=== PATIENT | male | born 1955 | race Caucasian/White ===

== ENCOUNTER 2016-12-15 13:01 | Emergency (ER) | payer MEDICAID, OTHER ==
[~2016-12-15] VITALS: Ht 170.2 cm; Wt 74.4 kg
[2016-12-15 13:22] VITALS: Ht 170.2 cm; Wt 74.4 kg
[2016-12-15] MEDS ORDERED: TETRACAINE 0.5% 4 ML OPH BOTH EYES ONE (16:00)
[2016-12-15] MEDS ORDERED: FLUORESCEIN STRIP RIGHT EYE ONE (16:00)
--- NOTE | 2016-12-15 16:03 | ERD ---
ER Documentation Chief Complaint Date/Time DATE: 12/15/16 TIME: 15:55 Chief Complaint RIGHT EYE BLURRY VISION X 1 MONTH.SENT BY PMD HPI This is a 61-year-old male who presents to the ED with right eye blurry vision for 1 month. Patient admitted the blurry vision came on suddenly and has not returned. Patient can still see colors and contours. Patient also has 8/10 pain that radiates to the right temporal and right-sided headache that has been constant for the past month. Patient has not taken any pain medication and nothing relieves the pain. Patient denies fever, flashing lights or floaters, ringing in the ears, nausea, vomiting, diarrhea. Denies wearing any glasses or contacts. Denies any headaches, weakness, numbness or tingling. Denies any photophobia or phonophobia. ROS All systems reviewed and are negative except as per history of present illness. Allergies Allergies: Coded Allergies: No Known Allergy (Unverified , 12/15/16) Physical Exam Vitals Vital Signs Date Time Temp Pulse Resp B/P Pulse Ox O2 Delivery O2 Flow Rate FiO2 12/15/16 13:22 98.2 118 20 120/61 98 Physical Exam Const: [id number]-[id number], well-nourished. In no acute distress. Head: Atraumatic, normocephalic Eyes: Normal Conjunctiva with mild injection. No purulent discharge. PERRLA to left eye. Limited pupil constriction to right eye. EOMI bilaterally. Cup to disc ratio not visualized on right eye. ENT: Normal external ear. Ear canal without erythema. Tympanic membrane pearly ospina without effusion or bulging. Nasal canal clear with normal turbinates. Moist oropharynx without tonsillar exudates. Non-erythematous pharynx. Uvula midline. No drooling. No trismus. Neck: No cervical midline tenderness. Full range of motion. No meningismus. No cervical lymphadenopathy. No JVD. Resp: Clear to auscultation bilaterally. No wheezing, rhonchi, rales, or crackles. No accessory muscle use. No retractions. Cardio: Regular rate and rhythm. No murmurs, rubs or gallops. Skin: Normal skin turgor. No petechiae or rashes Ext: No cyanosis, or edema. Distal pulses intact bilaterally. Neur: Awake and alert. Normal gait. Normal coordination. Cranial Nerves II- VII intact. Normal finger to nose. Muscle strength 5/5. Sensation intact. Psych: Normal Mood and Affect Results 24 hrs Current Medications Medications (Trade) Dose Ordered Sig/Marylou Route PRN Reason Start Time Stop Time Status Last Admin Dose Admin Tetracaine HCl (Tetracaine 0.5% Steri-Unit Stephanie) 1 drop ONCE ONCE BOTH EYES 12/15/16 16:00 12/15/16 16:01 DC 12/15/16 16:13 Fluorescein Sodium (Qhgvr-D-Ffeiy) 1 strip ONCE ONCE RIGHT EYE 12/15/16 16:00 12/15/16 16:01 DC 12/15/16 16:13 Procedures/MDM This is a 61-year-old male with a past medical history of bipolar disorder presents to the ED complaining of sudden onset of blurred vision that occurred in his right eye 1 month ago. Patient is afebrile and nontoxic-appearing. At this time patient was further evaluated with a visual acuity, fluorescein stain , Pedro Luis-Pen and ultrasound of the bilateral eyes. Eye Exam w/ Wood's lamp: Visual Acuity: [Left 20/40 right 20/50 bilateral 20/40 Visual Davidson: Intact in all four quadrants bilaterally Lac ducts/glands: No swelling Lids w/ evertion: Normal, no foreign body Conj/Jackson: Clear, negative Fluorescein/Vidal's Anterior Chamber: Clear Tonopen readings: [Right 48 mmHg, left 20 mmHg] Retina exam: No obvious abnormality PROCEDURE: US orbits. CLINICAL INDICATION: Right eye blurry vision and pain for 1 month. TECHNIQUE: High-resolution sonography of the orbits was performed in the axial and sagittal planes. COMPARISON: None. FINDINGS: There are bilateral linear echogenic structures posteriorly in the globes consistent with retinal detachment. In addition, the lens of the right eye may be abnormally positioned. IMPRESSION: 1. Bilateral retinal detachment. 2. Lens of the right eye may be abnormally positioned. 3. Ophthalmology consultation is advised Call report: A call report of the findings was made to Dr. Patel on 2016 at 1730 hours. Patient was noted to have a bilateral retinal detachment. This case was discussed with my supervising physician, Dr. Ramírez who stated that patient can be managed on outpatient basis. I strictly instructed patient to follow-up within 24 hours with an [facility] consultant at [facility]. Low suspicion for ruptured globe, periorbital cellulitis, acute angle closure glaucoma, deep space infection, iritis, traumatic hyphema, conjunctivitis, subconjunctival hemorrhage, corneal abrasion, corneal ulcer, pterygium, hypopyon, blepharitis, hordeolum, chalazion, or other emergent conditions. Follow up with primary care physician in 1-2 days. Instructed patient to return to the ED sooner for any worsening symptoms. Patient's questions were answered. Patient understood and agreed with discharge plan. Patient discharged stable. Departure Diagnosis: Primary Impression: Blurred vision, right eye Condition: Stable Patient Instructions: Blurred Vision Referrals: COMMUNITY CLINICS YOU HAVE RECEIVED A MEDICAL SCREENING EXAM AND THE RESULTS INDICATE THAT YOU DO NOT HAVE A CONDITION THAT REQUIRES URGENT TREATMENT IN THE EMERGENCY DEPARTMENT. FURTHER EVALUATION AND TREATMENT OF YOUR CONDITION CAN WAIT UNTIL YOU ARE SEEN IN YOUR DOCTORS OFFICE WITHIN THE NEXT 1-2 DAYS. IT IS YOUR RESPONSIBILITY TO MAKE AN APPOINTMENT FOR FOLOW-UP CARE. IF YOU HAVE A PRIMARY DOCTOR --you should call your primary doctor and schedule an appointment IF YOU DO NOT HAVE A PRIMARY DOCTOR YOU CAN CALL OUR PHYSICIAN REFERRAL HOTLINE AT IF YOU CAN NOT AFFORD TO SEE A PHYSICIAN YOU CAN CHOSE FROM THE FOLLOWING [facility] [address] [facility]. [facility] [address] [facility]. [facility] [address] [facility] [facility] [address] [facility] [facility] [address] [facility]. [facility]. [address] [facility]. [facility] YOU HAVE RECEIVED A MEDICAL SCREENING EXAM AND THE RESULTS INDICATE THAT YOU DO NOT HAVE A CONDITION THAT REQUIRES URGENT TREATMENT IN THE EMERGENCY DEPARTMENT. FURTHER EVALUATION AND TREATMENT OF YOUR CONDITION CAN WAIT UNTIL YOU ARE SEEN IN YOUR DOCTORS OFFICE WITHIN THE NEXT 1-2 DAYS. IT IS YOUR RESPONSIBILITY TO MAKE AN APPOINTMENT FOR FOLOW-UP CARE. IF YOU HAVE A PRIMARY DOCTOR --you should call your primary doctor and schedule and appointment IF YOU DO NOT HAVE A PRIMARY DOCTOR YOU CAN CALL OUR PHYSICIAN REFERRAL HOTLINE AT . IF YOU CAN NOT AFFORD TO SEE A PHYSICIAN YOU CAN CHOSE FROM THE FOLLOWING [facility] INSTITUTIONS: [facility] [address] [place] [address] [facility] [address] [place] [address] [facility] [address] [place] [address] [facility] Hours: Mon - Fri 9:00 AM - 5:00 PM Additional Instructions: FOLLOW UP WITH OPTHALMOLOGIST WITHIN 24 HOURS. Return to this facility if you are not improving as expected. YUNI OHARA PA-C Dec 15, 2016 16:03
--- NOTE | 2016-12-15 17:57 | RADRPT ---
PROCEDURE: US orbits. CLINICAL INDICATION: Right eye blurry vision and pain for 1 month. TECHNIQUE: High-resolution sonography of the orbits was performed in the axial and sagittal planes . COMPARISON: None. FINDINGS: There are bilateral linear echogenic structures posteriorly in the globes consistent with retinal de tachment. In addition, the lens of the right eye may be abnormally positioned. IMPRESSION: 1. Bilateral retinal detachment. 2. Lens of the right eye may be abnormally positioned. 3. Ophthalmology consultation is advised Call report: A call report of the findings was made to Dr. Patel on 12/15/2016 at 1730 hours. RPTAT: QQ .Heron Mcintyre MD, MD Date Time Electronically viewed and signed by .Heron Mcintyre MD, MD on 12/15/2016 17:57 .R/
== END 2016-12-15 18:21 | disposition home or self-care (01) ==
LOC: FTE 13:01
DX: H53.8 Other visual disturbances (principal)
CPT/HCPCS: 76536; Z7502; Z7610